=== PATIENT | male | born 1970 | race Caucasian/White ===

== ENCOUNTER 2020-03-14 16:52 | Emergency (ER) | payer MEDICARE, MEDICAID ==
[~2020-03-14] VITALS: Ht 175.3 cm; Wt 88.6 kg
[2020-03-14 18:11] LABS: BASOPHILS # (AUTO) 0.1 X10'3 (0-0.2); BASOPHILS % (AUTO) 0.5 % (0-1); EOSINOPHILS % (AUTO) 0.2 % (0-6); HEMATOCRIT 46.5 % (42.0-52.0); HEMOGLOBIN 15.8 g/dl (14.0-17.9); LYMPHOCYTES # (AUTO) 1.5 X10'3 (1.1-4.8); LYMPHOCYTES % (AUTO) 11.4 % (21-51); MEAN CORPUSCULAR HEMOGLOBIN 30.8 PG (27.0-31.0); MEAN CORPUSCULAR HGB CONC 33.9 g/dL (33.0-36.5); MEAN PLATELET VOLUME 9.4 FL (7.4-10.4); MONOCYTES # (AUTO) 0.5 X10'3 (0-0.9); NEUTROPHILS % (AUTO) 83.9 % (42-75); PLATELET COUNT 279 X10'3 (140-440); RED BLOOD COUNT 5.11 X10'6 (4.70-6.10); RED CELL DISTRIBUTION WIDTH 13.2 % (11.5-14.5); WHITE BLOOD COUNT 13.1 X10'3 (4.5-11.0)
[2020-03-14 18:14] VITALS: BP 119/84
[2020-03-14 18:16] LABS: PARTIAL THROMBOPLASTIN TIME 31 SECONDS (22-32)
[2020-03-14 18:18] LABS: ALANINE AMINOTRANSFERASE 29 U/L (12-78); ALBUMIN 4.3 G/DL (3.4-5.0); ALBUMIN/GLOBULIN RATIO 1.3 (1.1-1.5); ALKALINE PHOSPHATASE 73 IU/L (46-116); ANION GAP 14 (8-16); ASPARTATE AMINO TRANSFERASE 33 U/L (10-37); BILIRUBIN,TOTAL 1.6 MG/DL (0.1-1.0); BLOOD UREA NITROGEN 15 MG/DL (7-18); BUN/CREATININE RATIO 13.4 (5.4-32.0); CALCIUM 9.5 MG/DL (8.5-10.1); CHLORIDE 103 MMOL/L (99-107); CREATININE 1.12 MG/DL (0.60-1.10); GLUCOSE 102 MG/DL (70-104); POTASSIUM 3.3 MMOL/L (3.5-5.1); SODIUM 136 MMOL/L (135-145); TOTAL CARBON DIOXIDE 19.4 MMOL/L (24-32); TOTAL PROTEIN 7.7 G/DL (6.4-8.2); eGFR 69 ML/MIN
[2020-03-14] MEDS ORDERED: PANT-47 PO (18:51)
== END 2020-03-14 19:08 | disposition home or self-care (01) ==
LOC: ER 16:53
DX: R06.02 Shortness of breath (principal); R05 Cough; Z20.828 Contact with and (suspected) exposure to other viral communicable diseases; Z79.899 Other long term (current) drug therapy
CPT/HCPCS: 36415; 71045; 80053; 83880; 84484; 85025; 85610; 85730; 93005; 99285

== ENCOUNTER 2024-11-10 20:16 | Emergency (ER) | payer OTHER, MEDICAID ==
[~2024-11-10] VITALS: Ht 175.3 cm; Wt 80.1 kg
[~2024-11-10 20:16] MED LIST: PANT-47 PO
[2024-11-10 20:22] VITALS: BP 144/85; PULSE 64; RESP 16; O2SAT 98
--- NOTE | 2024-11-10 22:12 | Physician Documentation ---
History of Present Illness ~ Chief Complaint: Ear Pain Stated Complaint: EAR PAIN Time Seen by MD: 21:02 Primary Medical Doctor: andrzej [facility] This 54-year-old male presents with left ear discomfort due to ear wax in his ear, patient reports that he can feel it moving around in causing him to hear myself talking. Patient reports no ear pain. Patient reports no other acute symptoms or concerns. Medication Reconciliation Allergies: Coded Allergies: No Known Allergies (Unverified , 06/30/15) Scheduled Pantoprazole Sodium (PROTONIX tablet), 1 TAB PO DAILY Past Medical History Past Medical History: No Pertinent History Past Surgical History: no surgical history Alcohol Use: None Drug Use: none Lives In: Home Review of Systems ROS Excessive ear wax as stated above in the HPI, otherwise all systems are reviewed and negative. Physical Exam Vital Signs: Temperature: 98.0, Source: Oral, Heart Rate: 64, Respiratory Rate: 16, BP: 144/85, Pulse Oximetry: 98, Weight: 80.100 Oxygen Flow Rate: 0 Physical Exam VITALS: Reviewed and as above. GENERAL: Alert, nontoxic appearing, no apparent distress. HEENT: Small amount of impacted ear wax in auditory canal of left ear, left TM visualized clear without bulging, right auditory canal flecks of your wax, right TM clear without bulging. Bilateral auditory canals nonerythematous RESPIRATORY: No increased work of breathing, no respiratory distress, speaking in full clear sentences Procedures Ear Procedure Ear Procedure : Ear Location: Left Procedure: curette, irrigation Foreign Body/Cerumen Removal: cerumen removed, successful Reexamination after Removal: normal external canal Tolerated Procedure Well?: yes, no complications Progress Results/Orders Results/Orders Vital Signs 11/10/24 11/10/24 20:22 22:17 Temp 98.0 98.0 Pulse 64 Resp 16 B/P (MAP) 144/85 Pulse Ox 98 O2 Flow Rate 0 Medical Decision Making Findings This 54-year-old male presented requesting removal of excessive ear wax in his left ear, patient reported no pain to the ear. Physical exam demonstrated a large amount of cerumen in the ear canal without full impaction has tympanic membrane was visible and normal-appearing, a curette was used to loosen stuck on ear wax and remainder of ear wax was irrigated from ear by nursing staff. Reexamination demonstrated complete removal of ear wax and no evidence of tympanic membrane involvement, right ear had normal exam and did not require intervention. Patient is hemodynamically stable and otherwise well-appearing with benign physical exam and appropriate for outpatient follow up. Patient provided home care instructions and return to care precautions. Ear Diff. Dx: Considerations: Include: Abrasion, Cerumen impaction, Foreign bod y, Otitis externa, Otitis media, Perforation, Referred pain-dental, Tympanic Membrane Injury Departure Disposition: HOME / SELF CARE / HOMELESS Impression: Primary Impression: Excessive cerumen in left ear canal Condition: Improved Discharge Instructions: Earwax Buildup, Adult Additional Instructions: Please follow up with your primary care provider in the next few days. I recommend picking up some [id number] Debrox ear wax softening drops and using these to help clear your ear of excessive wax in the future. Please return to the emergency department for any new or worsening concerning symptoms. Referrals: NO PRIMARY CARE PROVIDER (PCP) Education Educated: Patient Educated regarding: diagnosis, treatment, prognosis, need for follow up Signature Scribe Signature: No scribe Attestation: The note accurately reflects work and decisions made by me.ELISHA Hernández 11/11/24 02:42 SOO JAY November 10, 2024 22:12
[2024-11-10 22:17] VITALS: TEMP 98
== END 2024-11-10 22:19 | disposition home or self-care (01) ==
LOC: ER 20:16
DX: H61.22 Impacted cerumen, left ear (principal)
CPT/HCPCS: 69210; 99284